=== PATIENT | female | born 1970 | race Caucasian/White ===

== ENCOUNTER 2016-10-11 13:01 | Inpatient (IN) | payer OTHER ==
[~2016-10-11] VITALS: Ht 157.5 cm; Wt 56.7 kg
--- NOTE | ~2016-10-11 | H ---
[facility] [place] [address] HISTORY AND PHYSICAL Name: LIDA DIOR Room #: 422-P ADM IN M.R.#: [id number] Admission: 10/11/16 Attend Phys: Darrius Barboza MD Discharge: Date of : 70 Report #: [id number] THIS REPORT FOR: //name// CC: LUIS physician/PCP Darrius Barboza REASON FOR PRESENTATION: Right-sided flank pain. HISTORY OF PRESENT ILLNESS: This is a 46-year-old with no known significant past medical history. She had talked with her personal physicians regarding some urgency, frequency in the last couple of days. She was prescribed Bactrim with some improvement in her symptoms initially. She traveled to the [facility] with her family and started to have very significant right-sided flank pain associated with nausea, vomiting. This was also associated with fever and chills. No diarrhea. She visited the facility down in [place] and that is [facility] and appropriate workup was initiated and this revealed that she had stranding around to the right kidney along with leukocytosis and what seems to be multiple stones, none of them is obstructing on the right side. The patient opted to be transferred to our facility for further evaluation and management. PAST MEDICAL HISTORY: No known chronic medical problems. PAST SURGICAL HISTORY: Hysterectomy, cholecystectomy. ALLERGIES: None. FAMILY HISTORY: None. MEDICATIONS: She was on Bactrim, p.r.n. painkillers. REVIEW OF SYSTEMS: GENERAL: Significant for fever and chills. CARDIOVASCULAR: No chest pain or palpitation. PULMONARY: No cough or hemoptysis. GASTROINTESTINAL: Significant for nausea. MUSCULOSKELETAL: No back pain. No morning stiffness. SKIN: No rash or ulcerations. PHYSICAL EXAMINATION: GENERAL: She was alert, oriented. She seems to be mildly distressed. VITAL SIGNS: Her temperature was 37.3, pulse rate was 102, respiratory rate was 20, blood pressure was 96/52. HEAD AND NECK: No jugular venous distention, no bruit, no thyromegaly. CHEST: Clear to auscultation bilaterally. CARDIOVASCULAR: Regular with no rub detected. ABDOMEN: Soft, nontender with no hepatosplenomegaly. [facility] [address] [place] [address] HISTORY AND PHYSICAL Name: LIDA DIOR Room #: 422-[facility] ..#: [id number] Admission: 10/11/16 Attend Phys: Darrius Barboza MD Discharge: Date of : 70 Report #: [id number] angle tenderness. LOWER EXTREMITIES: No edema with intact peripheral pulses. LABORATORY VALUES: She does not have any labs here; however, the laboratory values from [facility] showed the following: Sodium 135, potassium 3.9, anion gap was 15, carbon dioxide was 19, lactic acid was 1.4. Urine was positive for nitrites. Liver function was within normal. White blood cell count was 27,000. ASSESSMENT, IMPRESSION, PLAN: 1. Pyelonephritis. 2. Leukocytosis due to #1. 3. Multiple nonobstructing stones. 4. Admission. 5. Aggressive IV fluid. 6. Pain control. 7. Nausea and vomiting medications. 8. cultures blood and urine. 9. Start empirically on Rocephin since she failed Bactrim as an outpatient. 10. Obtain urologic consultation. <ELECTRONICALLY SIGNED> By: Darlene Love MD 10/12/16 1043 41 11 Darlene Love MD /nt
[2016-10-11 15:45] VITALS: BP 96/52
[2016-10-11 17:13] LABS: HEMATOCRIT 36.7 % (37.0-47.0); HEMOGLOBIN 12.4 gm/dL (12.0-15.0); MCH 31.6 pg (26.0-34.0); MCHC 33.8 g/dL (28.0-37.0); MCV 93.7 fL (80.0-100.0); RBC 3.91 mil/uL (4.20-5.00); RDW 13.5 % (10.5-14.5); WBC 25.6 thou/uL (4.0-11.0)
[2016-10-11 17:21] LABS: CALCIUM 7.5 mg/dL (8.5-10.1); CREATININE 0.9 mg/dL (0.6-1.0); POTASSIUM 3.7 mmol/L (3.5-5.1)
[2016-10-11 17:26] LABS: ALBUMIN 2.6 g/dL (3.4-5.0); TOTAL BILIRUBIN 0.5 mg/dL (<0.1-1.0); TOTAL PROTEIN 5.8 g/dL (6.4-8.2)
[2016-10-11 18:31] LABS: URINE BILIRUBIN NEGATIVE (Negative); URINE BLOOD 2+ (Negative); URINE COLOR YELLOW; URINE GLUCOSE-RANDOM* NEGATIVE (Negative); URINE KETONES 2+ (Negative); URINE NITRITE NEGATIVE (Negative); URINE PROTEIN (DIPSTICK) TRACE (Negative); URINE UROBILINOGEN 0.2 E.U./dl (0.2-1.0)
[2016-10-11 18:41] LABS: SQUAMOUS 0-3 Few /LPF (0-3)
[2016-10-11 18:42] LABS: BACTERIA 1-9 Few /HPF (None Seen); CASTS None Seen /LPF (None Seen); CRYSTALS None Seen /LPF (None Seen)
[2016-10-11 19:10] VITALS: BP 94/62
[2016-10-11 23:30] VITALS: BP 100/55
[2016-10-12 04:08] VITALS: BP 90/60
[2016-10-12 07:40] VITALS: BP 110/60; BP 75/44
[2016-10-12 11:06] VITALS: BP 118/58
[2016-10-12 15:55] VITALS: BP 110/66
[2016-10-12 18:41] VITALS: BP 103/70
[2016-10-12 22:44] VITALS: BP 125/78
[2016-10-13 04:45] VITALS: BP 103/62
[2016-10-13 04:45] LABS: HEMATOCRIT 31.8 % (37.0-47.0); HEMOGLOBIN 10.9 gm/dL (12.0-15.0); MCH 32.5 pg (26.0-34.0); MCHC 34.3 g/dL (28.0-37.0); MCV 94.8 fL (80.0-100.0); RBC 3.35 mil/uL (4.20-5.00); RDW 13.8 % (10.5-14.5); WBC 19.1 thou/uL (4.0-11.0)
[2016-10-13 08:00] VITALS: BP 104/69
[2016-10-13 15:45] VITALS: BP 107/71
[2016-10-13 19:38] VITALS: BP 109/72
[2016-10-14 04:25] VITALS: BP 117/82
[2016-10-14 07:00] LABS: HEMATOCRIT 34.6 % (37.0-47.0); HEMOGLOBIN 11.9 gm/dL (12.0-15.0); MCH 31.9 pg (26.0-34.0); MCHC 34.3 g/dL (28.0-37.0); RBC 3.72 mil/uL (4.20-5.00); RDW 13.6 % (10.5-14.5); WBC 13.2 thou/uL (4.0-11.0)
[2016-10-14 07:12] LABS: CALCIUM 7.9 mg/dL (8.5-10.1); CREATININE 0.7 mg/dL (0.6-1.0)
[2016-10-14 07:40] VITALS: BP 108/71
[2016-10-14] MEDS ORDERED: FLOMAX0.4 MG PO (14:09)
[2016-10-14] MEDS ORDERED: PERCOCET PO (14:09)
[2016-10-14] MEDS ORDERED: LEVAQUIN 500 M500 M2 PO (14:10)
[2016-10-14] MEDS ORDERED: PROBIOTIC1 EAC1 PO (14:12)
[2016-10-14] MEDS ORDERED: ZOFRAN ODT4 MG DISSOLVE (14:12)
[2016-10-14 15:18] VITALS: BP 108/71
== END 2016-10-14 15:29 | disposition home or self-care (01) | DRG 690 ==
LOC: 4E 13:01
PROVIDERS: Hospitalist
DX: N12 Tubulo-interstitial nephritis, not specified as acute or chronic (principal); N20.0 Calculus of kidney; I95.9 Hypotension, unspecified; F17.210 Nicotine dependence, cigarettes, uncomplicated; D72.829 Elevated white blood cell count, unspecified; Z79.899 Other long term (current) drug therapy; Z90.49 Acquired absence of other specified parts of digestive tract; Z90.710 Acquired absence of both cervix and uterus
CPT/HCPCS: 10183

== ENCOUNTER 2016-10-16 15:59 | Emergency (ER) | payer OTHER ==
[~2016-10-16] VITALS: Ht 157.5 cm; Wt 56.7 kg
[~2016-10-16 15:59] MED LIST: FLOMAX0.4 MG PO; LEVAQUIN 500 M500 M2 PO; PERCOCET PO; PROBIOTIC1 EAC1 PO; ZOFRAN ODT4 MG DISSOLVE
[2016-10-16 16:00] VITALS: BP 142/75
[2016-10-16 16:35] LABS: HEMOGLOBIN 12.8 gm/dL (12.0-15.0); MCH 31.6 pg (26.0-34.0); MCHC 34.5 g/dL (28.0-37.0); MCV 91.6 fL (80.0-100.0); RBC 4.05 mil/uL (4.20-5.00); RDW 13.4 % (10.5-14.5); WBC 11.8 thou/uL (4.0-11.0)
[2016-10-16 16:36] LABS: PLATELET COUNT 431 thou/uL (150-400)
[2016-10-16 16:37] LABS: MANUAL DIFF YES
[2016-10-16 17:00] LABS: ANION GAP 13 mmol/L (7-16); BUN 9 mg/dL (7-18); CALCIUM 8.9 mg/dL (8.5-10.1); CHLORIDE 103 mmol/L (98-107); CO2 24 mmol/L (21-32); CREATININE 0.8 mg/dL (0.6-1.0); GLUCOSE 103 mg/dL (74-106); POTASSIUM 3.2 mmol/L (3.5-5.1); SODIUM 140 mmol/L (136-145)
[2016-10-16 17:07] LABS: URINE BILIRUBIN NEGATIVE (Negative); URINE BLOOD 1+ (Negative); URINE COLOR YELLOW; URINE GLUCOSE-RANDOM* NEGATIVE (Negative); URINE KETONES 3+ (Negative); URINE NITRITE NEGATIVE (Negative); URINE PROTEIN (DIPSTICK) NEGATIVE (Negative); URINE SPECIFIC GRAVITY 1.015 (1.003-1.035); URINE UROBILINOGEN 0.2 E.U./dl (0.2-1.0)
[2016-10-16 17:07] LABS: ALBUMIN 2.8 g/dL (3.4-5.0); ALKALINE PHOSPHATASE 100 U/L (46-116); DIRECT BILIRUBIN < 0.1 mg/dL (<0.1-0.3); SGOT 33 U/L (15-37); SGPT 34 U/L (30-65); TOTAL BILIRUBIN 0.3 mg/dL (<0.1-1.0); TOTAL PROTEIN 6.9 g/dL (6.4-8.2)
[2016-10-16 17:15] LABS: BACTERIA 1-9 Few /HPF (None Seen); CASTS None Seen /LPF (None Seen); CRYSTALS None Seen /LPF (None Seen); SQUAMOUS 0-3 Few /LPF (0-3); URINE RBC 0-2 Rare /HPF (0-2); URINE WBC None Seen /HPF (0-5)
[2016-10-16 17:27] LABS: ABSOLUTE NEUTROPHILS 7.6 thou/uL (1.4-8.2); TOTAL CELL COUNT 100
[2016-10-16] MEDS ORDERED: REGLAN 10 MG TA10 MG PO (18:14)
[2016-10-16] MEDS ORDERED: ONDANSETRON HCL4 M2 PO (18:14)
[2016-10-16] MEDS ORDERED: POTASSIUM20 PO (18:35)
[2016-10-16 18:58] VITALS: BP 120/58
== END 2016-10-16 18:58 | disposition home or self-care (01) ==
LOC: ER 15:59 → EROBS 17:57
PROVIDERS: Nurse Practitioner
DX: R11.2 Nausea with vomiting, unspecified (principal); J18.9 Pneumonia, unspecified organism; F17.210 Nicotine dependence, cigarettes, uncomplicated; F10.99 Alcohol use, unspecified with unspecified alcohol-induced disorder; Z98.890 Other specified postprocedural states; Z87.448 Personal history of other diseases of urinary system

== ENCOUNTER 2017-01-09 08:36 | Inpatient (IN) | payer OTHER ==
[~2017-01-09] VITALS: Ht 157.5 cm; Wt 54.4 kg
--- NOTE | ~2017-01-09 | HC ---
[facility] [place] [address] CONSULTATION Name: LIDA DIOR Room #: 408-P ADM IN M.R.#: [id number] Admission: 01/09/17 Attend Phys: Dc Hung DO Discharge: Date of : 70 Report #: [id number] THIS REPORT FOR: //name// CC: LUIS physician/PCP Dc Hung INFECTIOUS DISEASE CONSULTATION REASON FOR CONSULTATION: I was asked to evaluate concerning pyelonephritis. HISTORY OF PRESENT ILLNESS: The patient was a 46-year-old who has a history of ____ ureter on the right. She was diagnosed with E. coli pyelonephritis in September of this past year. The right kidney had multiple calculi, which were nonobstructing. Cultures had revealed E. coli that was identified from [facility] prior to her admission. Subsequently, she had recurrent urinary tract infection with Escherichia coli. Because of such, she underwent cystoscopy with right retrograde pyelogram, right ureteroscopy, laser incision of infundibular stenosis, right laser lithotripsy, stone extraction, and right ureteral stent placement on 01/06/[address] Gene Vega. She did reasonably well following this, although she continued to have hematuria as expected. This morning, she awoke and felt lightheaded. 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 Here, became worse and was admitted to the med/surg for. She has had blood pressure down in the 80 systolic. No documented fever or chills. She has right flank pain and dysuria. REVIEW OF SYSTEMS: Notes no rash, arthritis, headache, cough, sputum, nausea, vomiting or diarrhea. She has been on ciprofloxacin for the last week, which she states the organism was susceptible. ALLERGIES: None known. MEDICATIONS: As noted on her MAR, now on Zosyn. PAST MEDICAL HISTORY: Tonsillectomy, hysterectomy, cholecystectomy. FAMILY HISTORY: Noncontributory. SOCIAL HISTORY: Smoker of cigarettes. No significant alcohol intake. PHYSICAL EXAMINATION: VITAL SIGNS: Afebrile with blood pressure 80/50, heart rate 80. GENERAL: She was alert, cooperative and pleasant, in no acute distress. SKIN: Unremarkable. LYMPH: Unremarkable. HEENT: Unremarkable. CHEST: Clear. HEART: Regular without murmur. [address] [address] CONSULTATION Name: LIDA DIOR Room #: [address] [place] [address] IN M.R.#: [id number] Admission: 01/09/17 Attend Phys: Dc Hung DO Discharge: Date of : 70 Report #: [id number] ABDOMEN: Soft, tender suprapubic region and had right CVA tenderness. EXTREMITIES: Unremarkable. NEUROLOGIC: Nonfocal. LABORATORY STUDIES: CT scan of the abdomen and pelvis does show the nephroureteral stent with proximal coil in the right inferior pole leonides and distal coil in the bladder. No obstruction identified. She had decreased enhancement within the posterior right inferior renal pole consistent with pyelonephritis. No evidence of abscess identified. No other anterior abdominal issues. Lactate was 1.2, hemoglobin 14, WBC 25.8, platelet count was 373,000; 1% bands. Sodium 134, potassium 4.3, bicarbonate 26, creatinine 0.9. Liver function test normal. Albumin at 3.7. Urinalysis: Few wbc's, few rbc's, few bacteria. IMPRESSION: A 46-year-old with right pyelonephritis following stone extraction and stent placement 3 days ago. Urinalysis does not match the presentation. PLAN: I will recommend continuing IV antibiotic therapy with Zosyn, continue with fluid resuscitation. Followup evaluation by Urology and we will repeat her urine study today. By: 13 0448 Jorge Owen MD /nt
[2017-01-09 08:36] VITALS: BP 116/81
[~2017-01-09 08:36] MED LIST changes: +ONDANSETRON HCL4 M2 PO; +POTASSIUM20 PO; +REGLAN 10 MG TA10 MG PO
[2017-01-09] MEDS ORDERED: PERCOCET PO (08:39)
[2017-01-09] MEDS ORDERED: CIPRO500 MG PO (08:39)
[2017-01-09 08:59] LABS: URINE BILIRUBIN NEGATIVE (Negative); URINE BLOOD 3+ (Negative); URINE COLOR YELLOW; URINE GLUCOSE-RANDOM* NEGATIVE (Negative); URINE KETONES NEGATIVE (Negative); URINE PROTEIN (DIPSTICK) TRACE (Negative); URINE UROBILINOGEN 0.2 E.U./dl (0.2-1.0)
[2017-01-09 09:01] LABS: MANUAL DIFF YES; MCH 31.8 pg (26.0-34.0); MCHC 34.2 g/dL (28.0-37.0); MCV 92.9 fL (80.0-100.0); PLATELET COUNT 373 thou/uL (150-400); RBC 4.41 mil/uL (4.20-5.00); RDW 13.9 % (10.5-14.5); WBC 25.8 thou/uL (4.0-11.0)
[2017-01-09 09:04] LABS: URINE LEUKOCYTES-REFLEX 2+ (Negative)
[2017-01-09 09:07] LABS: CALCIUM 9.2 mg/dL (8.5-10.1); CREATININE 0.9 mg/dL (0.6-1.0); POTASSIUM 4.3 mmol/L (3.5-5.1)
[2017-01-09 09:08] LABS: CASTS None Seen /LPF (None Seen); SQUAMOUS 0-3 Few /LPF (0-3); URINE RBC 3-10 Few /HPF (0-2); URINE WBC-REFLEX 6-15 Few /HPF (0-5)
[2017-01-09 09:09] LABS: CRYSTALS None Seen /LPF (None Seen); WBC CLUMPS Few (None Seen)
[2017-01-09 09:13] LABS: ALBUMIN 3.7 g/dL (3.4-5.0); TOTAL BILIRUBIN 0.3 mg/dL (<0.1-1.0)
[2017-01-09 09:29] LABS: ABSOLUTE NEUTROPHILS 20.6 thou/uL (1.4-8.2); PLATELET ESTIMATE NORMAL; TOTAL CELL COUNT 100
[2017-01-09 11:38] VITALS: BP 115/63
[2017-01-09 15:23] VITALS: BP 97/62
[2017-01-09 16:08] VITALS: BP 97/62
[2017-01-09 19:45] VITALS: BP 87/46
[2017-01-10 00:32] VITALS: BP 93/56
[2017-01-10 03:45] VITALS: BP 87/46
[2017-01-10 06:40] LABS: CALCIUM 8.1 mg/dL (8.5-10.1); CREATININE 0.9 mg/dL (0.6-1.0)
[2017-01-10 07:06] VITALS: BP 87/44
[2017-01-10 07:35] LABS: BASOPHILS 0.6 % (0.0-2.0); EOSINOPHILS 5.7 % (0.0-3.0); HEMATOCRIT 38.4 % (37.0-47.0); HEMOGLOBIN 12.7 gm/dL (12.0-15.0); MANUAL DIFF NO; MCH 30.8 pg (26.0-34.0); MCV 93.2 fL (80.0-100.0); MONOCYTES 6.3 % (1.0-8.0); PLATELET COUNT 312 thou/uL (150-400); POLYS 71.4 % (36.0-66.0); RBC 4.13 mil/uL (4.20-5.00); WBC 19.6 thou/uL (4.0-11.0)
[2017-01-10 10:21] LABS: URINE BILIRUBIN NEGATIVE (Negative); URINE BLOOD 3+ (Negative); URINE COLOR YELLOW; URINE GLUCOSE-RANDOM* NEGATIVE (Negative); URINE KETONES NEGATIVE (Negative); URINE LEUKOCYTES-REFLEX 1+ (Negative); URINE PROTEIN (DIPSTICK) 1+ (Negative); URINE UROBILINOGEN 0.2 E.U./dl (0.2-1.0)
[2017-01-10 10:46] LABS: SQUAMOUS 4-10 Moderate /LPF (0-3)
[2017-01-10 10:47] LABS: CASTS None Seen /LPF (None Seen); CRYSTALS None Seen /LPF (None Seen); URINE WBC-REFLEX 6-15 Few /HPF (0-5)
[2017-01-10 15:01] VITALS: BP 106/71
[2017-01-10 20:00] VITALS: BP 100/51
[2017-01-11 04:00] VITALS: BP 92/56
[2017-01-11 04:56] LABS: BASOPHILS 0.7 % (0.0-2.0); EOSINOPHILS 6.8 % (0.0-3.0); HEMOGLOBIN 12.1 gm/dL (12.0-15.0); LYMPHOCYTES 16.5 % (24.0-44.0); MCH 31.2 pg (26.0-34.0); MCHC 33.7 g/dL (28.0-37.0); MCV 92.7 fL (80.0-100.0); MONOCYTES 6.2 % (1.0-8.0); PLATELET COUNT 288 thou/uL (150-400); POLYS 69.8 % (36.0-66.0); RBC 3.88 mil/uL (4.20-5.00); WBC 15.8 thou/uL (4.0-11.0)
[2017-01-11 04:57] LABS: MANUAL DIFF NO
[2017-01-11 05:08] LABS: CREATININE 0.8 mg/dL (0.6-1.0); POTASSIUM 3.8 mmol/L (3.5-5.1)
[2017-01-11 08:00] VITALS: BP 99/70
[2017-01-11] MEDS ORDERED: AMOXICILLIN 50500 MG PO (12:15)
[2017-01-11 12:20] VITALS: BP 99/70
== END 2017-01-11 12:55 | disposition home or self-care (01) | DRG 690 ==
LOC: ER 08:36 → EROBS 10:02 → 4N 15:23
PROVIDERS: Emergency Medicine; Family Medicine; Internal Medicine Endocrinology, Diabetes & Metabolism; Specialist
DX: N12 Tubulo-interstitial nephritis, not specified as acute or chronic (principal); F17.210 Nicotine dependence, cigarettes, uncomplicated; D72.829 Elevated white blood cell count, unspecified; M19.90 Unspecified osteoarthritis, unspecified site; Z28.21 Immunization not carried out because of patient refusal; Z87.442 Personal history of urinary calculi; Z90.710 Acquired absence of both cervix and uterus; Z90.49 Acquired absence of other specified parts of digestive tract; Z79.899 Other long term (current) drug therapy
CPT/HCPCS: 10091

== ENCOUNTER → 2017-04-08 | Outpatient (CLI) | payer OTHER ==
[~2017-04-08] MED LIST changes: +AMOXICILLIN 50500 MG PO; +CEFDINIR300 MG PO; +CIPRO500 MG PO; +NORCO 7.5-3251 EACH PO; +UNISOM SLEEP AI25 MG PO; +ZOFRAN ODT4 MG PO
== END ==
LOC: ULTRA 08:01
DX: N20.0 Calculus of kidney (principal); N28.1 Cyst of kidney, acquired

== ENCOUNTER 2017-07-12 10:12 | Emergency (ER) | payer OTHER ==
[~2017-07-12] VITALS: Ht 157.5 cm; Wt 56.7 kg
[~2017-07-12 10:12] MED LIST changes: -CEFDINIR300 MG PO; -NORCO 7.5-3251 EACH PO; -UNISOM SLEEP AI25 MG PO; -ZOFRAN ODT4 MG PO
[2017-07-12 10:28] LABS: URINE BILIRUBIN NEGATIVE (Negative); URINE BLOOD TRACE (Negative); URINE CLARITY SL CLOUDY; URINE COLOR YELLOW; URINE GLUCOSE-RANDOM* NEGATIVE (Negative); URINE KETONES TRACE (Negative); URINE LEUKOCYTES-REFLEX NEGATIVE (Negative); URINE NITRITE-REFLEX NEGATIVE (Negative); URINE PROTEIN (DIPSTICK) NEGATIVE (Negative); URINE UROBILINOGEN 0.2 E.U./dl (0.2-1.0)
[2017-07-12 10:42] LABS: ABSOLUTE NEUTROPHILS 8.9 thou/uL (1.4-8.2); BASOPHILS 0.8 % (0.0-2.0); EOSINOPHILS 1.9 % (0.0-3.0); HEMATOCRIT 41.5 % (37.0-47.0); HEMOGLOBIN 14.1 gm/dL (12.0-15.0); LYMPHOCYTES 22.2 % (24.0-44.0); MCH 31.6 pg (26.0-34.0); MCHC 34.1 g/dL (28.0-37.0); MCV 92.6 fL (80.0-100.0); MONOCYTES 7.5 % (1.0-8.0); PLATELET COUNT 377 thou/uL (150-400); POLYS 67.6 % (36.0-66.0); RBC 4.48 mil/uL (4.20-5.00); RDW 13.6 % (10.5-14.5); WBC 13.2 thou/uL (4.0-11.0)
[2017-07-12 10:50] LABS: ANION GAP 10 mmol/L (7-16); BUN 10 mg/dL (7-18); CALCIUM 8.9 mg/dL (8.5-10.1); CHLORIDE 104 mmol/L (98-107); CO2 24 mmol/L (21-32); CREATININE 0.8 mg/dL (0.6-1.0); GLUCOSE 102 mg/dL (74-106); POTASSIUM 3.6 mmol/L (3.5-5.1); SODIUM 138 mmol/L (136-145)
[2017-07-12 10:56] LABS: ALBUMIN 3.8 g/dL (3.4-5.0); DIRECT BILIRUBIN < 0.1 mg/dL (<0.1-0.3); LIPASE 92 U/L (73-393); SGOT 17 U/L (15-37); SGPT 19 U/L (30-65); TOTAL BILIRUBIN 0.4 mg/dL (<0.1-1.0); TOTAL PROTEIN 7.1 g/dL (6.4-8.2)
[2017-07-12] MEDS ORDERED: CEFDINIR300 MG PO ×2 (10:56→11:28)
[2017-07-12] MEDS ORDERED: ZOFRAN ODT4 MG PO (11:28)
[2017-07-12] MEDS ORDERED: NORCO 7.5-3251 EACH PO (11:28)
== END 2017-07-12 11:48 | disposition home or self-care (01) ==
LOC: ER 10:12
PROVIDERS: Emergency Medicine
DX: N39.0 Urinary tract infection, site not specified (principal); R11.0 Nausea; R10.9 Unspecified abdominal pain; F17.210 Nicotine dependence, cigarettes, uncomplicated; Z90.49 Acquired absence of other specified parts of digestive tract; Z90.710 Acquired absence of both cervix and uterus

== ENCOUNTER → 2017-07-17 | Outpatient (CLI) | payer OTHER ==
[~2017-07-17] MED LIST changes: +CEFDINIR300 MG PO; +NORCO 7.5-3251 EACH PO; +ZOFRAN ODT4 MG PO
== END ==
LOC: CAT 06:21 → EDSTATUS 17:06 → CAT 17:08
DX: N11.1 Chronic obstructive pyelonephritis (principal); N20.0 Calculus of kidney; N28.1 Cyst of kidney, acquired; K57.90 Diverticulosis of intestine, part unspecified, without perforation or abscess without bleeding; N83.201 Unspecified ovarian cyst, right side

== ENCOUNTER 2017-09-01 05:26 | Day surgery (SDC) | payer OTHER ==
[~2017-09-01] VITALS: Ht 157.5 cm; Wt 55.8 kg
--- NOTE | ~2017-09-01 | O ---
[facility] [place] [address] OPERATIVE REPORT Name: LIDA DIOR Room #: 150-1 [facility]..#: [id number] Admission: 09/01/17 Attend Phys: Gene Vega MD Discharge: Date of : 70 Report #: [id number] THIS REPORT FOR: //name// CC: Gene THOMAS Libia Richard DATE OF SERVICE: 09/01/2017 PREOPERATIVE DIAGNOSIS: Right kidney stones, recurrent urinary tract infection/chronic pyelonephritis. POSTOPERATIVE DIAGNOSIS: Right kidney stones, recurrent urinary tract infection/chronic pyelonephritis. PROCEDURE: Cystoscopy, right retrograde pyelogram, right ureteroscopy, laser incision of infundibular stenosis, right ureteral stent placement. SURGEON: Gene Vega MD TOE POUNDER: None. ANESTHESIA: General. ESTIMATED BLOOD LOSS: 5 mL. DRAINS: Right 4.8 Angolan x 24 cm double-J ureteral stent. COMPLICATIONS: None. INDICATIONS: A 47-year-old woman with history of recurrent UTI and right-sided pyelonephritis. 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 She had ureteroscopy for stones in this kidney last year. We are unable to locate one of the stones. At that time, she had a good UTI free interval; however, began experiencing more episodes of pyelonephritis in the past few months. A repeat CT scan was obtained which demonstrated multiple stones in the right lower pole moiety, none in the upper pole moiety. We discussed another attempt at ureteroscopy to clear her stone burden. Risks, benefits, alternatives discussed at length, the risks including bleeding, infection, damage to ureter, sepsis, ureteral stricture, failure to clear stone burden, failure to improve recurrent infections as well as need for subsequent procedures. She acknowledged she understood these risks. She has pertinent questions which are answered. Ultimately elected to proceed. PROCEDURE AND FINDINGS: The patient was identified in the preoperative holding area. She was marked and consented, transported to the cystoscopy suite where [address] [address] OPERATIVE REPORT Name: LIDA DIOR Room #: [address] [place] [address]..#: [id number] Admission: 09/01/17 Attend Phys: Gene Vega MD Discharge: Date of : 70 Report #: [id number] general anesthetic was administered. She was positioned in the dorsal lithotomy position with all appropriate pressure points padded. She was prepped and draped in typical sterile fashion. A timeout was performed confirming correct patient, procedure and laterality. She received preoperative IV antibiotics with ceftriaxone. We began by inserting the rigid cystoscope through the urethra into the bladder. Urethra and bladder neck were without abnormalities. Bladder was unremarkable, no stones, tumors, or other lesions. As with previous left ureteral orifice was orthotopic in position, right ureteral orifice was ectopic just proximal to the bladder neck. I was able to easily identify, cannulated with a sensor wire. Sensor wire was passed radiographically up into the collecting system. It appeared to go into the upper pole moiety. I placed a 5-Angolan open-ended catheter over the wire, performed retrograde pyelogram, which did demonstrate that the wire was in the upper pole moiety. There was no hydronephrosis, no concerning filling defects. I left wire in the upper pole moiety, used a 6.9 Angolan rigid ureteroscope to perform ureteroscopy of the distal ureter approximately 1 cm up from the UO. I located opening to the lower pole ureter, the site of duplication, cannulated this under visual and radiographic guidance with a second sensor wire, placed lower pole moiety, removed the ureteroscope, used a 5-Angolan open-ended catheter to perform a retrograde pyelogram. This demonstrated very small collecting system with stenotic infundibula. No concerning filling defects. A 5-Angolan open-ended catheter was removed. A 12/14-Angolan 35 cm ureteral access sheath was placed over the wire up into the proximal ureter under radiographic guidance. This passed easily. Flexible ureteroscope was placed through the sheath up into the lower pole collecting system. Meticulous nephroscopy was undertaken. There were multiple stenotic infundibuli, 3 in total that I could visualize the lower pole. The most inferior of the lower pole calices was opened. There was another stenotic leonides in the anterior lower pole, which I could not access with the scope, could not visualize this area and this is where her known stone that I was unable to access the last time was. I had tried multiple methods including trying to direct a basket into the area but could not access the stone that was stuck there. Using a low joules high frequency setting, total power of 6 diehl, I lasered the stenotic infundibula that I could access 3 in total. Upon entering them, the calices were completely scarred in all 3 cases. Any stone material that there was completely embedded and not able to be visualized. Given these findings, I felt it best to place a stent and terminate the procedure. The scope was removed. Sheath was removed. A 4.8 Angolan 24 cm double-J ureteral stent was then placed under radiographic guidance with good proximal and distal curls confirmed. Cystoscope was repassed into the bladder. Good distal curl was confirmed visually. Bladder was drained, scope was removed. Procedure was terminated. The patient was awakened and transported to recovery room having suffered no apparent complication. We will maintain her on antibiotics for at least a week postoperatively until her stent is removed. She continues to experience episodes of pyelonephritis on her right side. Unfortunately, I think the only course of action to try to prevent this will be [facility] [address] [place] [address] OPERATIVE REPORT Name: LIDA DIOR Room #: 150-1 [facility] M.R.#: [id number] Admission: 09/01/17 Attend Phys: Gene Vega MD Discharge: Date of : 70 Report #: [id number] a lower pole heminephrectomy given that I cannot remove the embedded stone material which is presumably acting as nidus for infections. By: 1058 1130 Gene Vega MD /nt
[~2017-09-01 05:26] MED LIST changes: +UNISOM SLEEP AI25 MG PO
[2017-09-01 07:19] LABS: HEMATOCRIT 41.9 % (37.0-47.0); HEMOGLOBIN 14.4 gm/dL (12.0-15.0)
[2017-09-01 08:04] VITALS: BP 103/72
[2017-09-01 11:22] VITALS: BP 103/72
== END 2017-09-01 12:05 | disposition home or self-care (01) ==
LOC: OR 05:26 → TBA 05:27 → OR 10:26
PROVIDERS: Urology
DX: N20.0 Calculus of kidney (principal); N11.1 Chronic obstructive pyelonephritis; N39.0 Urinary tract infection, site not specified; F17.210 Nicotine dependence, cigarettes, uncomplicated; Z90.49 Acquired absence of other specified parts of digestive tract; Z90.710 Acquired absence of both cervix and uterus; Z98.890 Other specified postprocedural states; Z79.899 Other long term (current) drug therapy
CPT/HCPCS: 50010; 50101; 62110; 62900; 70005

== ENCOUNTER → 2018-01-27 | Outpatient (CLI) | payer OTHER | LOC: NUC 09:33 | DX: N20.0 Calculus of kidney (principal); N11.1 Chronic obstructive pyelonephritis ==

== ENCOUNTER 2018-10-17 13:10 | Emergency (ER) | payer OTHER ==
[~2018-10-17] VITALS: Ht 157.5 cm; Wt 57.1 kg
[2018-10-17 13:39] LABS: ABSOLUTE NEUTROPHILS 7.6 thou/uL (1.4-8.2); BASOPHILS 0.6 % (0.0-2.0); EOSINOPHILS 4.4 % (0.0-3.0); HEMATOCRIT 44.5 % (37.0-47.0); LYMPHOCYTES 19.1 % (24.0-44.0); MCH 32.2 pg (26.0-34.0); MCHC 33.7 g/dL (28.0-37.0); MCV 95.7 fL (80.0-100.0); MONOCYTES 9.7 % (1.0-8.0); PLATELET COUNT 358 thou/uL (150-400); POLYS 66.2 % (36.0-66.0); RBC 4.65 mil/uL (4.20-5.00); RDW 13.9 % (10.5-14.5); WBC 11.5 thou/uL (4.0-11.0)
[2018-10-17 13:39] LABS: URINE BILIRUBIN NEGATIVE (Negative); URINE BLOOD TRACE (Negative); URINE CLARITY CLEAR; URINE COLOR YELLOW; URINE GLUCOSE-RANDOM* NEGATIVE (Negative); URINE KETONES NEGATIVE (Negative); URINE LEUKOCYTES-REFLEX 1+ (Negative); URINE NITRITE-REFLEX NEGATIVE (Negative); URINE PROTEIN (DIPSTICK) NEGATIVE (Negative); URINE UROBILINOGEN 0.2 E.U./dl (0.2-1.0)
[2018-10-17 13:46] LABS: CASTS None Seen /LPF (None Seen); CRYSTALS None Seen /LPF (None Seen); SQUAMOUS 0-3 Few /LPF (0-3)
[2018-10-17 13:47] LABS: CALCIUM 9.6 mg/dL (8.5-10.1); CREATININE 0.9 mg/dL (0.6-1.0); POTASSIUM 3.5 mmol/L (3.5-5.1)
[2018-10-17 13:47] LABS: BACTERIA-REFLEX 1-9 Few /HPF (None Seen); URINE RBC 0-2 Rare /HPF (0-2); URINE WBC-REFLEX 0-5 Rare /HPF (0-5)
[2018-10-17] MEDS ORDERED: ZOFRAN ODT4 MG PO (15:29)
[2018-10-17 15:30] VITALS: BP 108/71
== END 2018-10-17 18:55 | disposition home or self-care (01) ==
LOC: ER 13:10
PROVIDERS: Emergency Medicine
DX: R10.31 Right lower quadrant pain (principal); R10.11 Right upper quadrant pain; R11.2 Nausea with vomiting, unspecified; F17.210 Nicotine dependence, cigarettes, uncomplicated; Z90.5 Acquired absence of kidney; Z90.710 Acquired absence of both cervix and uterus; Z90.49 Acquired absence of other specified parts of digestive tract; Z87.442 Personal history of urinary calculi; Z90.89 Acquired absence of other organs

== ENCOUNTER → 2018-10-19 | Outpatient (CLI) | payer OTHER | LOC: ULTRA 07:53 | DX: N20.0 Calculus of kidney (principal); N28.1 Cyst of kidney, acquired; N30.20 Other chronic cystitis without hematuria ==

== ENCOUNTER → 2019-01-06 | Outpatient (CLI) | payer OTHER | LOC: CAT 14:44 | DX: N28.1 Cyst of kidney, acquired (principal); K57.30 Diverticulosis of large intestine without perforation or abscess without bleeding; Z87.442 Personal history of urinary calculi; Z90.5 Acquired absence of kidney; Z90.49 Acquired absence of other specified parts of digestive tract; Z90.710 Acquired absence of both cervix and uterus ==

== ENCOUNTER 2019-06-15 09:04 | Emergency (ER) | payer OTHER ==
[~2019-06-15] VITALS: Ht 157.5 cm; Wt 61.2 kg
[2019-06-15 09:33] LABS: URINE BILIRUBIN NEGATIVE (Negative); URINE BLOOD TRACE (Negative); URINE CLARITY CLEAR; URINE COLOR YELLOW; URINE GLUCOSE-RANDOM* NEGATIVE (Negative); URINE KETONES NEGATIVE (Negative); URINE LEUKOCYTES-REFLEX NEGATIVE (Negative); URINE NITRITE-REFLEX NEGATIVE (Negative); URINE PROTEIN (DIPSTICK) NEGATIVE (Negative); URINE UROBILINOGEN 0.2 E.U./dl (0.2-1.0)
[2019-06-15 09:40] LABS: ABSOLUTE NEUTROPHILS 5.9 thou/uL (1.4-8.2); BASOPHILS 0.8 % (0.0-2.0); EOSINOPHILS 2.9 % (0.0-3.0); HEMATOCRIT 44.4 % (37.0-47.0); LYMPHOCYTES 23.9 % (24.0-44.0); MCH 32.3 pg (26.0-34.0); MCHC 33.7 g/dL (28.0-37.0); MCV 95.7 fL (80.0-100.0); MONOCYTES 9.5 % (1.0-8.0); PLATELET COUNT 363 thou/uL (150-400); POLYS 62.9 % (36.0-66.0); RBC 4.64 mil/uL (4.20-5.00); RDW 13.9 % (10.5-14.5); WBC 9.5 thou/uL (4.0-11.0)
[2019-06-15 09:43] LABS: ANION GAP 10 mmol/L (7-16); BUN 14 mg/dL (7-18); CALCIUM 8.8 mg/dL (8.5-10.1); CHLORIDE 103 mmol/L (98-107); CO2 23 mmol/L (21-32); CREATININE 0.9 mg/dL (0.6-1.0); GLUCOSE 99 mg/dL (74-106); POTASSIUM 4.1 mmol/L (3.5-5.1); SODIUM 136 mmol/L (136-145)
[2019-06-15 09:49] LABS: ALBUMIN 3.7 g/dL (3.4-5.0); DIRECT BILIRUBIN < 0.1 mg/dL (<0.1-0.2); LIPASE 136 U/L (73-393); SGOT 14 U/L (15-37); SGPT 21 U/L (30-65); TOTAL BILIRUBIN 0.3 mg/dL (<0.1-1.0)
[2019-06-15 10:45] VITALS: BP 112/67
== END 2019-06-15 10:46 | disposition home or self-care (01) ==
LOC: ER 09:04
PROVIDERS: Emergency Medicine
DX: R10.84 Generalized abdominal pain (principal); R31.9 Hematuria, unspecified; F17.210 Nicotine dependence, cigarettes, uncomplicated; Z90.49 Acquired absence of other specified parts of digestive tract; Z90.710 Acquired absence of both cervix and uterus; Z87.442 Personal history of urinary calculi

== ENCOUNTER 2019-06-16 07:46 | Emergency (ER) | payer OTHER ==
[~2019-06-16] VITALS: Ht 157.5 cm; Wt 61.2 kg
[2019-06-16 08:06] LABS: ABSOLUTE NEUTROPHILS 6.9 thou/uL (1.4-8.2); EOSINOPHILS 2.2 % (0.0-3.0); HEMATOCRIT 42.9 % (37.0-47.0); HEMOGLOBIN 14.5 gm/dL (12.0-15.0); LYMPHOCYTES 25.7 % (24.0-44.0); MCH 32.3 pg (26.0-34.0); MCHC 33.8 g/dL (28.0-37.0); MCV 95.4 fL (80.0-100.0); MONOCYTES 8.7 % (1.0-8.0); PLATELET COUNT 388 thou/uL (150-400); POLYS 62.4 % (36.0-66.0); RDW 13.5 % (10.5-14.5)
[2019-06-16 08:14] LABS: ANION GAP 10 mmol/L (7-16); BUN 11 mg/dL (7-18); CALCIUM 9.1 mg/dL (8.5-10.1); CHLORIDE 105 mmol/L (98-107); CO2 21 mmol/L (21-32); GLUCOSE 96 mg/dL (74-106); POTASSIUM 3.9 mmol/L (3.5-5.1); SODIUM 136 mmol/L (136-145)
[2019-06-16 08:20] LABS: ALBUMIN 3.9 g/dL (3.4-5.0); DIRECT BILIRUBIN < 0.1 mg/dL (<0.1-0.2); SGOT 13 U/L (15-37); SGPT 20 U/L (30-65); TOTAL BILIRUBIN 0.3 mg/dL (<0.1-1.0)
[2019-06-16 10:01] LABS: URINE BILIRUBIN NEGATIVE (Negative); URINE BLOOD NEGATIVE (Negative); URINE CLARITY CLEAR; URINE COLOR YELLOW; URINE GLUCOSE-RANDOM* NEGATIVE (Negative); URINE KETONES NEGATIVE (Negative); URINE LEUKOCYTES-REFLEX NEGATIVE (Negative); URINE NITRITE-REFLEX NEGATIVE (Negative); URINE PROTEIN (DIPSTICK) NEGATIVE (Negative); URINE SPECIFIC GRAVITY <= 1.005 (1.005-1.035); URINE UROBILINOGEN 0.2 E.U./dl (0.2-1.0)
[2019-06-16 11:27] VITALS: BP 118/76
[2019-06-17] MEDS ORDERED: CEFDINIR300 MG (10:16)
== END 2019-06-16 11:27 | disposition home or self-care (01) ==
LOC: ER 07:46
PROVIDERS: Emergency Medicine
DX: M54.9 Dorsalgia, unspecified (principal); R10.9 Unspecified abdominal pain; R20.0 Anesthesia of skin; R20.2 Paresthesia of skin; R06.4 Hyperventilation; F17.210 Nicotine dependence, cigarettes, uncomplicated; Z79.2 Long term (current) use of antibiotics; Z79.899 Other long term (current) drug therapy; Z90.710 Acquired absence of both cervix and uterus; Z90.49 Acquired absence of other specified parts of digestive tract; Z87.442 Personal history of urinary calculi

== ENCOUNTER 2019-06-17 08:53 | Inpatient (IN) | payer OTHER ==
[~2019-06-17] VITALS: Ht 157.5 cm; Wt 61.2 kg
--- NOTE | ~2019-06-17 | O ---
[facility] [place] [address] OPERATIVE REPORT Name: LIDA DIOR Room #: 441-P ADM IN M.R.#: [id number] Admission: 06/17/19 Attend Phys: Jaime Menard, Discharge: Date of : 70 Report #: [id number] THIS REPORT FOR: cc: Hiren Jacinto MD, Neal A. MD Patterson, Jonathan D. MD ~ CC: Jaime Jacinto DATE OF SERVICE: 06/17/2019 PREOPERATIVE DIAGNOSIS: Right lower quadrant abdominal pain with appendicolith. POSTOPERATIVE DIAGNOSIS: Right lower quadrant abdominal pain with appendicolith. OPERATION: Laparoscopic appendectomy. SURGEON: Jaime Menard MD ANESTHESIA: General. ESTIMATED BLOOD LOSS: Minimal. SPECIMEN: Appendix. DESCRIPTION OF PROCEDURE: After informed consent was obtained, the patient was brought to the operating room and placed supine. SCDs were placed and working, preoperative antibiotics were administered, general anesthesia was induced. The abdomen was prepped and draped in the usual sterile fashion. A 10 mm incision was made below the umbilicus. Fascia was incised and a trocar was placed. Pneumoperitoneum was established. A right upper quadrant and left lower quadrant 5 mm trocar was placed. The appendix was visualized in the right lower quadrant. It was grasped and retracted anteriorly. A window was made in the mesoappendix. The mesoappendix was ligated with a JUAN DAVID white load stapler. There was good hemostasis. The base of the appendix was then stapled off with a JUAN DAVID blue load stapler. Appendix was placed into an Endopouch and removed. The fascia was then closed with a [id number] 0 Vicryl. Skin was closed with 4-0 Monocryl. Incisions were sealed with Dermabond. COMPLICATIONS: None. [address] [address] OPERATIVE REPORT Name: LIDA DIOR Room #: 441-P [facility] IN [facility].#: [id number] Admission: 06/17/19 Attend Phys: Jaime Menard, Discharge: Date of : 70 Report #: [id number] DISPOSITION: The patient was taken to recovery in satisfactory condition. By: 1205 1214 Jaime Menard MD /nt
[2019-06-17 09:45] VITALS: BP 128/81
[2019-06-17] MEDS ORDERED: CEFDINIR300 MG (10:16)
[2019-06-17 13:26] VITALS: BP 104/77
[2019-06-17 14:09] VITALS: BP 94/62
[2019-06-17 15:03] VITALS: BP 104/63
[2019-06-17 15:30] VITALS: BP 104/63
--- NOTE | 2019-06-17 16:00 | NUR ---
PT RECEIVED DIRECT ADMIT FROM HOME W/ ACUTE APPENDICITIS OBSERVATION STATUS. PT ADMITTED AND ASSESSED. WENT TO THE OR AT 1030 AND RETURNED AT 1315 ALERT AND IN NO ACUTE DISTRESS. PT ATE LUNCH AND VOIDED. UP AMBULTING W/O DIFFICULTY. DICHARGED AT 1600 AFTER TALKING W/ DR. DUVAL AT BEDSIDE. DOING WELL.
== END 2019-06-17 15:15 | disposition home or self-care (01) | DRG 343 ==
LOC: 4S 08:53
PROVIDERS: ADMIT Surgery
PROC: 0DTJ4ZZ Resection of Appendix, Percutaneous Endoscopic Approach (ICD-10-PCS; principal; 2019-06-17)
DX: K38.1 Appendicular concretions (principal); F17.210 Nicotine dependence, cigarettes, uncomplicated; Z90.710 Acquired absence of both cervix and uterus; Z90.49 Acquired absence of other specified parts of digestive tract; Z87.442 Personal history of urinary calculi
CPT/HCPCS: 10102; 50010; 50101; 70005

== ENCOUNTER → 2020-01-31 | Outpatient (CLI) | payer OTHER ==
[~2020-01-31] MED LIST changes: +CEFDINIR300 MG
== END ==
LOC: LAB 10:33
PROVIDERS: ATTEND Nurse Practitioner
DX: J34.89 Other specified disorders of nose and nasal sinuses (principal); R52 Pain, unspecified; R19.7 Diarrhea, unspecified; Z20.828 Contact with and (suspected) exposure to other viral communicable diseases

== ENCOUNTER 2020-02-17 09:06 | Emergency (ER) | payer OTHER ==
[~2020-02-17] VITALS: Ht 157.5 cm; Wt 56.7 kg
[2020-02-17 09:07] VITALS: BP 144/96
== END 2020-02-17 09:59 | disposition home or self-care (01) ==
LOC: ER 09:06
DX: J34.89 Other specified disorders of nose and nasal sinuses (principal); Z20.828 Contact with and (suspected) exposure to other viral communicable diseases; F17.210 Nicotine dependence, cigarettes, uncomplicated; Z90.89 Acquired absence of other organs; Z90.711 Acquired absence of uterus with remaining cervical stump; Z90.49 Acquired absence of other specified parts of digestive tract; Z87.442 Personal history of urinary calculi; Z79.899 Other long term (current) drug therapy

== ENCOUNTER → 2020-02-22 | Outpatient (CLI) | payer OTHER | LOC: LAB 08:02 | PROVIDERS: ATTEND Nurse Practitioner | DX: Z20.828 Contact with and (suspected) exposure to other viral communicable diseases (principal) ==

== ENCOUNTER → 2020-03-05 | Outpatient (CLI) | payer OTHER | LOC: LAB 09:19 | PROVIDERS: ATTEND Neuromusculoskeletal Medicine & OMM | DX: N39.0 Urinary tract infection, site not specified (principal); R31.9 Hematuria, unspecified ==

== ENCOUNTER → 2020-05-07 | Outpatient (CLI) | payer OTHER | LOC: RAD 13:43 | PROVIDERS: ATTEND Nurse Practitioner | DX: Z12.31 Encounter for screening mammogram for malignant neoplasm of breast (principal); N64.89 Other specified disorders of breast ==

== ENCOUNTER → 2020-05-23 | Outpatient (CLI) | payer OTHER | LOC: LAB 07:26 | PROVIDERS: ATTEND Anesthesiology | DX: Z01.812 Encounter for preprocedural laboratory examination (principal); Z20.822 Contact with and (suspected) exposure to COVID-19 ==

== ENCOUNTER → 2020-09-26 | Outpatient (CLI) | payer OTHER ==
[2020-09-26 10:06] LABS: ABSOLUTE NEUTROPHILS 7.5 thou/uL (1.4-8.2); BASOPHILS 0.7 % (0.0-2.0); EOSINOPHILS 3.2 % (0.0-3.0); HEMATOCRIT 43.1 % (37.0-47.0); HEMOGLOBIN 14.4 gm/dL (12.0-15.0); LYMPHOCYTES 19.6 % (24.0-44.0); MCH 32.8 pg (26.0-34.0); MCHC 33.4 g/dL (28.0-37.0); MCV 98.2 fL (80.0-100.0); MONOCYTES 8.7 % (1.0-8.0); PLATELET COUNT 365 thou/uL (150-400); POLYS 67.8 % (36.0-66.0); RBC 4.39 mil/uL (4.20-5.00); WBC 11.1 thou/uL (4.0-11.0)
[2020-09-26 10:20] LABS: ALBUMIN 3.6 g/dL (3.4-5.0); CALCIUM 8.8 mg/dL (8.5-10.1); POTASSIUM 4.5 mmol/L (3.5-5.1); TOTAL BILIRUBIN 0.4 mg/dL (0.2-1.0); TOTAL PROTEIN 7.1 g/dL (6.4-8.2)
== END ==
LOC: CAT 09:25
PROVIDERS: ATTEND Nurse Practitioner
DX: K57.30 Diverticulosis of large intestine without perforation or abscess without bleeding (principal); N28.1 Cyst of kidney, acquired; N20.0 Calculus of kidney; Z90.5 Acquired absence of kidney

== ENCOUNTER 2020-11-15 14:49 | Emergency (ER) | payer OTHER ==
[~2020-11-15] VITALS: Ht 157.5 cm; Wt 59.0 kg
[2020-11-15 14:51] VITALS: BP 122/74
== END 2020-11-15 15:27 | disposition home or self-care (01) ==
LOC: ER 14:49
DX: S99.921A Unspecified injury of right foot, initial encounter (principal); F17.210 Nicotine dependence, cigarettes, uncomplicated; Z90.89 Acquired absence of other organs; Z90.710 Acquired absence of both cervix and uterus; Z90.49 Acquired absence of other specified parts of digestive tract; Z87.442 Personal history of urinary calculi; Z79.899 Other long term (current) drug therapy; W10.0XXA Fall (on)(from) escalator, initial encounter; Y93.89 Activity, other specified; Y92.89 Other specified places as the place of occurrence of the external cause; Y99.8 Other external cause status

== ENCOUNTER → 2021-01-10 | Outpatient (CLI) | payer OTHER ==
[~2021-01-10] MED LIST changes: +OMEPRAZOLE40 MG PO
== END ==
LOC: LAB 09:42 → EDSTATUS 18:07
PROVIDERS: ATTEND Student in an Organized Health Care Education/Training Program
DX: Z20.822 Contact with and (suspected) exposure to COVID-19 (principal)

== ENCOUNTER → 2021-01-11 | Outpatient (CLI) | payer OTHER ==
[~2021-01-11] VITALS: Ht 157.5 cm; Wt 61.2 kg
--- NOTE | 2021-01-12 08:46 | P ---
[facility] [place] [address] PROCEDURE REPORT Name: LIDA DIOR Room #: REG [facility] Lyudmila#: [id number] Admission: 01/11/21 Attend Phys: Gonzalo Fox Discharge: Date of : 70 Report #: [id number] THIS REPORT FOR: cc: Hiren Jacinto MD, Neal A. MD McElhinney, Christian C. MD ~ cc: Hiren Jacinto MD DATE OF SERVICE: 01/11/2021 PROCEDURE PERFORMED: Colonoscopy with biopsies. HISTORY OF PRESENT ILLNESS: The patient is a 50-year-old female, who presents today for screening colonoscopy. No previous history of colonoscopy. She had an episode of diverticulitis last summer that resolved with oral antibiotics, that was her first episode. She has noticed loose stools since that time. No family history of colon cancer or inflammatory bowel disease. DESCRIPTION OF PROCEDURE: The risks and benefits of the procedure were explained to the patient, those risks including but not limited to bleeding, perforation and the risk of sedation. She understood these risks and gave informed consent. Sedation was given using propofol per anesthesia. Next, digital rectal exam was initially performed, which was normal. Next, using a standard Olympus colonoscope, the scope was placed in the patient's anus and advanced under direct vision to the cecum. The overall prep was excellent. The cecum and ileocecal valve were normal in appearance. Terminal ileum was intubated and normal in appearance. The ascending, transverse and descending colon were normal. Multiple diverticula were noted in the sigmoid colon, no evidence of inflammation. Random biopsies were obtained today to rule out the possibility of microscopic colitis. Also, in the sigmoid colon, a 4-mm sessile polyp was noted, this was removed with cold forceps. In the rectum, a 3-mm sessile polyp was noted, also removed with cold forceps. On retroflexion, small nonbleeding internal hemorrhoids were noted. The scope was then withdrawn, and the procedure terminated, the patient tolerated the procedure well. IMPRESSION: 1. Two small colonic polyps. 2. Sigmoid diverticulosis. No evidence of inflammation. 3. Small internal hemorrhoids. 4. Otherwise, normal colonoscopy. RECOMMENDATIONS: 1. Await biopsy results. 2. If polyps are hyperplastic, repeat in 10 years; if adenomatous polyps, repeat in 5 years. 3. Recommend a trial of probiotics at this time while awaiting biopsies. [address] [address] PROCEDURE REPORT Name: LIDA DIOR Room #: REG CINDI Lyudmila#: [id number] Admission: 01/11/21 Attend Phys: Gonzalo Fox Discharge: Date of : 70 Report #: [id number] Thank you for allowing me to participate in her care. <ELECTRONICALLY SIGNED> By: Gonzalo Jenkins MD 01/12/21 [phone] 0853 Gonzalo Jenkins MD /agnes
--- NOTE | 2021-01-15 12:07 | PATH ---
[facility] [place] [address] PATHOLOGY RPT PROCEDURE Name: CIRA DIOR MONICA Room #: REG CINDI Sharma.#: [id number] Admission: 01/11/21 Date of : 70 Discharge: Report #: [id number] Path Case #: [id number] [facility] Accession Number: [id number] . 01 Material submitted: . PART A: gastrointestinal site - RANDOM BIOPSY PART B: sigmoid colon - SIGMOID COLON POLYP PART C: rectum - RECTAL POLYP . 01 Clinical history: . COLONOSCOPY SCREENING COLON CANCER . 02 Diagnosis: A. Large intestinal mucosa, random, endoscopic biopsy: - Mild focal acute colitis, see comment. - Negative for dysplasia or malignancy. . B. Polyp, sigmoid colon polyp, endoscopic biopsy: - Tubular adenoma. - Negative for high-grade dysplasia. . C. Polyp, rectal polyp, endoscopic biopsy - Hyperplastic polyp. - Negative for dysplasia. . (IUV:john; 01/14/2021) MBR 01/14/2021 1302 Local . 02 Comment: Sections of the colonic mucosa designated "random" show focal cryptitis, and a moderately cellular lamina propria composed predominantly of lymphocytes and plasma cells and occasional eosinophils. Surface ulceration is not identified. There are no crypt abscesses, granulomas or viral inclusions. The process affects all the fragments with a similar intensity. Given the description, the differential diagnosis includes focal self-limited episode of colitis, acute and chronic diverticulitis, bowel preparation, as well as medication/drug-induced colitis. Please correlate clinically. (IUV:elevator constructor hydraulic; 01/14/2021) . 02 Electronically signed: . Kathleen Melendrez MD, Pathologist NPI- [id number] . 01 Gross description: . A. Received in formalin labeled "Cira Dior random BX" are multiple [address] [address] PATHOLOGY RPT PROCEDURE Name: OVI,CIRA ANDERSON Room #: REG CLI [facility]#: [id number] Admission: 01/11/21 Date of : 70 Discharge: Report #: [id number] Path Case #: [id number] her-brown soft tissue fragments measuring in aggregate 1.2 x 0.4 x 0.3 cm. The specimen is submitted entirely in A1. . B. Received in formalin labeled "Cira Dior sigmoid colon polyp" are multiple her-brown soft tissue fragments measuring in aggregate 1.1 x 0.3 x 0.2 cm. The specimen is submitted entirely in B1. . C. Received in formalin labeled "Ovi, Cira rectal polyp" are multiple her-brown soft tissue fragments measuring in aggregate 0.8 x 0.2 x 0.2 cm. The specimen is submitted entirely in C1. ([facility]; 01/12/2021) GZA/GZA 01/12/2021 0738 Local . 02 Pathologist provided ICD-10: K52.9, D12.5, K62.1 . 02 CPT . 332776, 530007, 937886 Specimen Comment: A courtesy copy of this report has been sent to [phone], [phone] Specimen Comment: [id number] Specimen Comment: Report sent to , DR COSBY Specimen Comment: A duplicate report has been generated due to demographic updates. Performed at: [address] [facility], [place], [place] [id number] MD Dashawn Colon MD Phone: [phone] Performed at: [address] [facility] [id number] MD Kathleen Melendrez MD Phone: [phone]
== END | disposition home or self-care (01) ==
LOC: GI
PROVIDERS: ATTEND Specialist
DX: K52.9 Noninfective gastroenteritis and colitis, unspecified (principal); D12.5 Benign neoplasm of sigmoid colon; K62.1 Rectal polyp; K57.30 Diverticulosis of large intestine without perforation or abscess without bleeding; K64.8 Other hemorrhoids; K21.9 Gastro-esophageal reflux disease without esophagitis; F17.210 Nicotine dependence, cigarettes, uncomplicated; Z98.890 Other specified postprocedural states; Z79.899 Other long term (current) drug therapy; Z87.442 Personal history of urinary calculi; Z90.49 Acquired absence of other specified parts of digestive tract; Z90.710 Acquired absence of both cervix and uterus
CPT/HCPCS: 62110; 62900

== ENCOUNTER → 2021-02-11 | Outpatient (CLI) | payer OTHER | LOC: LAB 09:21 | PROVIDERS: ATTEND Nurse Practitioner | DX: R30.0 Dysuria (principal) ==

== ENCOUNTER → 2021-03-27 | Outpatient (CLI) | payer OTHER ==
[2021-03-27 09:25] LABS: ABSOLUTE NEUTROPHILS 7.5 thou/uL (1.4-8.2); BASOPHILS 0.4 % (0.0-2.0); EOSINOPHILS 2.2 % (0.0-3.0); HEMATOCRIT 44.1 % (37.0-47.0); HEMOGLOBIN 14.5 gm/dL (12.0-15.0); LYMPHOCYTES 19.2 % (24.0-44.0); MCH 32.4 pg (26.0-34.0); MCHC 32.9 g/dL (28.0-37.0); MCV 98.5 fL (80.0-100.0); MONOCYTES 10.4 % (1.0-8.0); PLATELET COUNT 321 thou/uL (150-400); POLYS 67.8 % (36.0-66.0); RBC 4.47 mil/uL (4.20-5.00); WBC 11.1 thou/uL (4.0-11.0)
[2021-03-27 09:37] LABS: ALBUMIN 3.5 g/dL (3.4-5.0); CALCIUM 8.7 mg/dL (8.5-10.1); CREATININE 0.8 mg/dL (0.6-1.0); POTASSIUM 4.1 mmol/L (3.5-5.1); TOTAL BILIRUBIN 0.1 mg/dL (0.2-1.0); TOTAL PROTEIN 7.4 g/dL (6.4-8.2)
== END ==
LOC: LAB 03-25 15:00 → CAT 08:00
PROVIDERS: ATTEND Specialist
DX: K57.30 Diverticulosis of large intestine without perforation or abscess without bleeding (principal); K42.9 Umbilical hernia without obstruction or gangrene; N39.0 Urinary tract infection, site not specified; N20.0 Calculus of kidney

== ENCOUNTER → 2021-05-13 | Outpatient (CLI) | payer OTHER | LOC: CAT 07:42 | PROVIDERS: ATTEND Urology | DX: N20.0 Calculus of kidney (principal); N28.1 Cyst of kidney, acquired; N28.89 Other specified disorders of kidney and ureter; N30.20 Other chronic cystitis without hematuria; K42.9 Umbilical hernia without obstruction or gangrene; K57.30 Diverticulosis of large intestine without perforation or abscess without bleeding; K76.0 Fatty (change of) liver, not elsewhere classified ==